=== PATIENT | female | born 1955 | race Caucasian/White ===

== ENCOUNTER → 2017-06-16 | Outpatient (CLI) | payer OTHER ==
--- NOTE | 2017-06-16 12:16 | RADIOLOGY REPORT (SQ) ---
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 Images reviewed with lung, soft tissue and bone windows. Reconstructed coronal and sagittal MPR im ages reviewed. All images stored on PACS. CT scan of the abdomen and pelvis performed with intravenous contrast and withoutoral contrast using helical scanning technique with dynamic intravenous contrast injection. Images reviewed with lung, s oft tissue and bone windows. Reconstructed coronal and sagittal MPR images reviewed. All images sto red on PACS. Patient was injected with 58 mL of IV Isovue 370 contrast. Creatinine 0.6. All CT scanners at this facility use dose modulation, iterative reconstruction, and/or weight based d osing when appropriate to reduce radiation dose to as low as reasonably achievable (ALARA). [facility]: Dose Right [facility]: CareDose [facility]: Dose Right [facility]: Teradose 4D [facility]: [employer] RADIATION DOSE: Up-to-date CT equipment and radiation dose reduction techniques were employed. CTDIv ol: 4.4 - 4.4 mGy. DLP: 442 mGy-cm. mGy. LIMITATIONS: No technical limitations. FINDINGS: CHEST: AXILLAE: No adenopathy. CHEST WALL: No masses. No subcutaneous air. LUNGS: No nodules or masses. No pneumothorax. No infiltrates. PLEURA: No effusions. No calcifications. THYROID: No masses or significant asymmetry. HILAR AND MEDIASTINAL STRUCTURES: No identified masses or abnormal nodes. AORTA AND GREAT VESSELS: Direct left vertebral artery origin off the aorta. The origins of the brach iocephalic artery, left common carotid artery, left subclavian artery are also patent. Patient had a 12 cm long descending thoracic aorta stent graft placed at [facility] in 2009. Th oracic aortic diameter is as follows: Ascending aorta proximal to the great vessels 3.2 cm diameter. Aortic arch at the takeoff of the great vessels 2.4 cm diameter Proximal descending thoracic aorta just above the stent graft 2.9 cm diameter Upper edge of the aortic stent graft at the T7-8 disc level 3.3 cm diameter Mid graft 3 cm diameter Distal graft 3.3 cm diameter at the aortic hiatus Upper abdominal aorta at the celiac and superior mesenteric artery origins 2.8 cm Abdominal aorta at the level of the renal arteries 2 cm diameter Just below the renal arteries abdominal aorta 2.3 cm diameter At the iliac bifurcation abdominal aorta 1.[address] angio evidence of endoleak along the stent graft HEART: No pericardial effusion. HARDWARE AND LIFELINES: None. BONES: No significant finding. OTHER: No other significant finding. ABDOMEN AND PELVIS: LIVER: Normal size. No masses. No dilated ducts. SPLEEN: Normal size. No focal lesions. PANCREAS: No masses. No significant calcifications. No adjacent inflammation or peripancreatic flui d collections. Pancreatic duct not dilated. GALLBLADDER: Surgically absent ADRENAL GLANDS: No significant masses or asymmetry. RIGHT KIDNEY AND URETER: 11.4 cm in length. No solid masses. No significant calcification. No hydro nephrosis or hydroureter. LEFT KIDNEY AND URETER: 9 cm in length with diffuse cortical thinning. Multiple subcentimeter cysts along the left upper pole kidney and mid pole kidney. No left renal artery stenosis on the reconstru ctions. No significant calcification. No hydronephrosis or hydroureter. AORTA AND VESSELS: No abdominal aortic aneurysm. No celiac, SMA, or renal artery stenosis RETROPERITONEUM: No retroperitoneal adenopathy, hemorrhage or masses. APPENDIX: Not in the field of view LARGE AND SMALL BOWEL: No dilatation. No masses. No wall thickening. ABDOMINAL WALL: No hernia or masses. PERITONEAL CAVITY: No free air. No free fluid. No peritoneal implants or masses. BONES: No significant or acute findings. OTHER: No other significant finding. IMPRESSION: No evidence of endoleak, distal thoracic aortic stent graft. Left renal atrophy with cortical thinning and multiple subcentimeter cysts along the upper and mid po le left kidney. No abdominal aorta aneurysm. No stenosis of the celiac artery, SMA, or bilateral renal arteries or p roximal common iliac arteries. TECHNICAL DOCUMENTATION: JOB ID: [id number] Quality ID # [id number]: Final reports with documentation of one or more dose reduction techniques (e.g., Au tomated exposure control, adjustment of the mA and/or kV according to patient size, use of iterative reconstruction technique) 2010 [employer]- All Rights Reserved
== END ==
LOC: RAD 09:37
PROVIDERS: ATTEND Family Medicine
DX: Z98.890 Other specified postprocedural states (principal); Q61.3 Polycystic kidney, unspecified
CPT/HCPCS: 71260; 74160; 82565

== ENCOUNTER → 2017-10-21 | Outpatient (CLI) | payer OTHER ==
--- NOTE | 2017-10-21 14:19 | RADIOLOGY REPORT (SQ) ---
EXAM DESCRIPTION: CHEST PA/LATERAL COMPLETED DATE/TIME: 10/21/2017 11:28 am REASON FOR STUDY: COPD COMPARISON: CT chest 06/16/2017 Chest films 12/12/2015, 09/18/2014 EXAM PARAMETERS: NUMBER OF VIEWS: two views TECHNIQUE: Digital Frontal and Lateral radiographic views of the chest acquired. RADIATION DOSE: NA LIMITATIONS: none FINDINGS: LUNGS AND PLEURA: Lungs are hyperinflated and hyperlucent from obstructive disease. No fo araceli infiltrates. No pleural effusion. No pneumothorax. MEDIASTINUM AND HILAR STRUCTURES: No masses or contour abnormalities. HEART AND VASCULAR STRUCTURES: Descending thoracic aortic stent graft BONES: Osteoporotic without thoracic compression deformities HARDWARE: None in the chest. OTHER: No other significant finding. IMPRESSION: No acute changes. Stable hyperinflation and hyperlucency of the lungs TECHNICAL DOCUMENTATION: JOB ID: [id number] [employer]- All Rights Reserved
== END ==
LOC: OD 10:31
PROVIDERS: ATTEND Family Medicine
DX: J44.9 Chronic obstructive pulmonary disease, unspecified (principal)
CPT/HCPCS: 71046

== ENCOUNTER → 2019-10-28 | Outpatient (CLI) | payer BC, OTHER ==
--- NOTE | 2019-10-28 14:17 | RADIOLOGY REPORT (SQ) ---
EXAM DESCRIPTION: MRI CERVICAL SPINE WITHOUT COMPLETED DATE/TIME: 10/28/2019 12:41 pm REASON FOR STUDY: M50.30 OTHER CERVICAL DISC DEGENERATION, UNSP CERVICAL REGION M50.30 OTHER CERVIC AL DISC DEGENERATION, UNSP CERVICAL REGIO COMPARISON: None. TECHNIQUE: Sagittal and Axial imaging includes T1, T2, STIR and gradient echo sequences. LIMITATIONS: None. FINDINGS: ALIGNMENT: Normal. VERTEBRAE: Intact. BONE MARROW: Normal. No marrow replacement or reactive changes. DISCS: Disc narrowing at C5-6 and C6-7. Decreased T2 signal intensity. HARDWARE: None in the spine. CORD AND BASE OF BRAIN: Normal in size and signal intensity. SOFT TISSUES: No soft tissue masses. C1-C2: No significant spinal stenosis. C2-C3: No significant spinal stenosis or exit foraminal stenosis. C3-C4: Broad-based disc/osteophyte complex slightly asymmetrical to the right. No central canal or f oraminal stenosis. C4-C5: Broad-based disc/osteophyte complex narrows the anterior CSF space but does not deform the spi nal cord. Mild right foraminal stenosis secondary to uncovertebral osteophytes. C5-C6: Broad-based disc/osteophyte complex narrows the anterior CSF space but does not deform the cor d. Mild foraminal narrowing bilaterally secondary to uncovertebral osteophytes. C6-C7: Broad-based disc/osteophyte complex narrows the anterior CSF space but does not deform the spi nal cord. Right foraminal stenosis secondary to uncovertebral osteophytes. C7-T1: No significant spinal stenosis or exit foraminal stenosis. UPPER THORACIC: Incompletely imaged. No significant spinal stenosis or exit foraminal stenosis. OTHER: No other significant finding. IMPRESSION: Degenerative disc changes as described above. Foraminal stenoses are present at 3 level s secondary to the presence of uncovertebral osteophytes. TECHNICAL DOCUMENTATION: JOB ID: [id number] [employer]- All Rights Reserved Reading location - IP/workstation name: [email or web address]
== END ==
LOC: RAD 11:45
PROVIDERS: ATTEND Orthopaedic Surgery
DX: M50.323 Other cervical disc degeneration at C6-C7 level (principal)
CPT/HCPCS: 72141